=== PATIENT | female | born 1960 | race Caucasian/White ===

== ENCOUNTER 2018-02-03 06:15 | Day surgery (SDC) | payer OTHER ==
[2018-02-03] MEDS ORDERED: CEFAZOLIN 1 GM INJ (07:00)
[2018-02-03] MEDS ORDERED: DEXAMETHASONE 4 MG/ML 1 ML INJ ×2 (07:51→08:04)
[2018-02-03] MEDS ORDERED: FENTAnyl 50 MCG/ML VIAL ×2 (08:03→08:54)
[2018-02-03] MEDS ORDERED: MIDAZOLAM 1 MG/ML 2 ML INJ (08:03)
[2018-02-03] MEDS ORDERED: SUCCINYLCHOLINE CHLORIDE 100 MG/5 ML SYG IV (08:03)
[2018-02-03] MEDS ORDERED: LIDOCAINE 100 MG SYRINGE (08:03)
[2018-02-03] MEDS ORDERED: PROPOFOL 100 ML (08:03)
[2018-02-03] MEDS ORDERED: ONDANSETRON 4 MG INJ (08:04)
[2018-02-03] MEDS ORDERED: hydrALAzine 20 MG INJ IV (09:00)
[2018-02-03] MEDS ORDERED: MEPERIDINE 25 MG INJ IV (09:00)
[2018-02-03] MEDS ORDERED: LABETALOL HCL 20MG INJ IV (09:00)
[2018-02-03] MEDS ORDERED: FENTAnyl 50 MCG/ML VIAL IV ×2 (09:00)
[2018-02-03] MEDS ORDERED: METOCLOPRAMIDE 10 MG INJ IV (09:00)
[2018-02-03] MEDS: BUPIVACAINE 0.5% (SDV) 30 ML INJ (09:20)
[2018-02-03] MEDS: POLYMYXIN/BACITRACIN 1L IRRIG (09:20)
[2018-02-03] MEDS: POVIDONE IODINE 10% 28.4 GM OINT (09:20)
[2018-02-03] MEDS: HYDROmorphONE 1 MG/5 ML IV SYRINGE IV ×3 (09:50→11:01)
[2018-02-03] MEDS ORDERED: HYDROmorphONE 1 MG/5 ML IV SYRINGE IV (09:51)
[2018-02-03] MEDS: ONDANSETRON 4 MG INJ IV (11:01)
== END 2018-02-03 11:44 | disposition home or self-care (01) ==
LOC: SDS 06:15
DX: M20.12 Hallux valgus (acquired), left foot (principal); M21.612 Bunion of left foot
CPT/HCPCS: 28299; 88304; 88311